=== PATIENT | female | born 1995 | race Caucasian/White ===

== ENCOUNTER 2018-03-06 02:35 | Emergency (ER) | payer OTHER ==
[2018-03-06] MEDS: SOD CHLORIDE 0.9% 1,000 ML IV (03:13)
[2018-03-06] MEDS: HYDROCODONE/APAP (5/325) TAB PO (06:11)
[2018-03-06] MEDS: POLYETHYLENE GLYCOL 17 GM PACKET PO (07:00)
[2018-03-06] MEDS: BISACODYL 30 ML ENEMA PR (07:00)
[2018-03-06] MEDS: ONDANSETRON 4 MG INJ IV (07:42)
[2018-03-06] MEDS: HYDROmorphONE 1 MG/ML SYG IV (08:04)
== END 2018-03-06 11:07 | disposition home or self-care (01) ==
LOC: E/R 11:07
DX: K59.00 Constipation, unspecified (principal); E11.9 Type 2 diabetes mellitus without complications; Z79.4 Long term (current) use of insulin; Z85.841 Personal history of malignant neoplasm of brain
CPT/HCPCS: 74176; 81003; 81025; 84703; 96374; 96375; 99285-25

== ENCOUNTER 2018-07-13 11:05 | Emergency (ER) | payer OTHER ==
[2018-07-13] MEDS: HYDROCODONE/APAP (10/325) TAB PO (11:23)
== END 2018-07-13 12:00 | disposition home or self-care (01) ==
LOC: E/R 11:05
DX: G89.4 Chronic pain syndrome (principal); E10.9 Type 1 diabetes mellitus without complications; I10 Essential (primary) hypertension; Z79.4 Long term (current) use of insulin; Z85.841 Personal history of malignant neoplasm of brain
CPT/HCPCS: 99283; Z7502

== ENCOUNTER 2019-03-05 12:41 | Emergency (ER) | payer MEDICARE, OTHER ==
[2019-03-05] MEDS: HALOPERIDOL 5 MG INJ IM (13:10)
[2019-03-05] MEDS: LORAZEPAM 2 MG INJ IM (13:10)
[2019-03-05 14:21] LABS: ADD MAN DIFF? NO
[2019-03-05 14:22] LABS: BASOPHILS % 0.2 % (0.0-2.0); EOSINOPHILS # 0.1 10^3/ul (0.0-0.5); EOSINOPHILS % 0.3 % (0.0-7.0); HEMATOCRIT 38.9 % (37.0-47.0); HEMOGLOBIN 12.5 g/dl (12.0-16.0); LYMPHOCYTES # 2.9 10^3/ul (0.8-2.9); LYMPHOCYTES % 16.4 % (15.0-51.0); MEAN CORPUSCULAR HEMOGLOBIN 26.3 pg (29.0-33.0); MEAN CORPUSCULAR HGB CONC 32.1 g/dl (32.0-37.0); MEAN CORPUSCULAR VOLUME 81.9 fl (82.0-101.0); MEAN PLATELET VOLUME 10.4 fl (7.4-10.4); MONOCYTE # 0.8 10^3/ul (0.3-0.9); MONOCYTES % 4.4 % (0.0-11.0); NEUTROPHIL # 13.7 10^3/ul (1.6-7.5); NEUTROPHILS % 78.1 % (39.0-77.0); PLATELET COUNT 299 10^3/UL (140-415); RED BLOOD COUNT 4.75 10^6/ul (4.20-5.40); RED CELL DISTRIBUTION WIDTH 13.9 % (11.5-14.5)
[2019-03-05 14:22] LABS: WHITE BLOOD COUNT 17.6 10^3/ul (4.8-10.8)
[2019-03-05 14:39] LABS: ALANINE AMINOTRANSFERASE 21 IU/L (13-69); ALBUMIN 4.1 g/dl (3.3-4.9); ALBUMIN/GLOBULIN RATIO 1.28; ALKALINE PHOSPHATASE 87 IU/L (42-121); ANION GAP 11 (5-13); ASPARTATE AMINO TRANSFERASE 14 IU/L (15-46); BILIRUBIN,INDIRECT 0.4 mg/dl (0-1.1); BILIRUBIN,TOTAL 0.4 mg/dl (0.2-1.3); BLOOD UREA NITROGEN 7 mg/dl (7-20); CALCIUM 9.2 mg/dl (8.4-10.2); CARBON DIOXIDE 18 mmol/L (21-31); CHLORIDE 107 mmol/L (97-110); Estimated GFR > 60 mL/min (>60); GLUCOSE 183 mg/dl (70-220); POTASSIUM 3.9 mmol/L (3.5-5.1); SODIUM 136 mmol/L (135-144); TOTAL PROTEIN 7.3 g/dl (6.1-8.1)
[2019-03-05 14:42] LABS: ACETAMINOPHEN < 10.0 ug/ml (10.0-30.0); ETHANOL < 10.0 mg/dl (0-0); SALICYLATE < 1.0 mg/dl (5.0-30.0)
[2019-03-05 15:59] LABS: AMPHETAMINE/METHAMPHETAMINE Negative (NEGATIVE); BARBITURATES Negative (NEGATIVE); BENZODIAZEPINES Negative (NEGATIVE); CANNABINOIDS Negative (NEGATIVE); COCAINE Negative (NEGATIVE); OPIATES Negative (NEGATIVE)
[2019-03-05] MEDS: SOD CHLORIDE 0.9% 1,000 ML IV (16:51)
[2019-03-05] MEDS ORDERED: SOD CHLORIDE 0.9% 1,000 ML IV (16:51)
[2019-03-05 20:50] LABS: ADD MAN DIFF? NO
[2019-03-05 20:52] LABS: BASOPHIL # 0.1 10^3/ul (0.0-0.1); BASOPHILS % 0.3 % (0.0-2.0); EOSINOPHILS # 0.1 10^3/ul (0.0-0.5); EOSINOPHILS % 0.5 % (0.0-7.0); HEMATOCRIT 38.4 % (37.0-47.0); HEMOGLOBIN 12.1 g/dl (12.0-16.0); LYMPHOCYTES # 4.6 10^3/ul (0.8-2.9); LYMPHOCYTES % 24.7 % (15.0-51.0); MEAN CORPUSCULAR HEMOGLOBIN 26.2 pg (29.0-33.0); MEAN CORPUSCULAR HGB CONC 31.5 g/dl (32.0-37.0); MEAN CORPUSCULAR VOLUME 83.3 fl (82.0-101.0); MONOCYTE # 0.9 10^3/ul (0.3-0.9); MONOCYTES % 4.8 % (0.0-11.0); NEUTROPHILS % 69.3 % (39.0-77.0); PLATELET COUNT 310 10^3/UL (140-415); RED BLOOD COUNT 4.61 10^6/ul (4.20-5.40)
[2019-03-05 20:52] LABS: WHITE BLOOD COUNT 18.7 10^3/ul (4.8-10.8)
[2019-03-05 22:25] LABS: URINE PH (Dip) POC 6.5 (5.0-8.5)
[2019-03-05 22:25] LABS: URINE BLOOD (Dip) POC Trace-lysed (NEGATIVE); URINE GLUCOSE (Dip) POC Negative (NEGATIVE); URINE KETONES (Dip) POC Negative (NEGATIVE); URINE LEUKOCYTE EST (Dip) POC 2+ (NEGATIVE); URINE NITRITE (Dip) POC Negative (NEGATIVE); URINE TOTAL PROTEIN POC Negative (NEGATIVE)
[2019-03-06] MEDS: ONDANSETRON (ODT) 4 MG TAB ODT ×2 (00:52→07:49)
[2019-03-06] MEDS: HYDROCODONE/APAP (5/325) TAB PO (00:52)
[2019-03-06] MEDS: TRIMETHOPRIM/SULFAMETHOX (DS) TAB PO ×2 (00:52→07:36)
[2019-03-06] MEDS: INSULIN GLARGINE [LANTus] (100 UNITS/ML) SYG SC (07:23)
[2019-03-06 08:14] LABS: ADD UMIC YES; UR ASCORBIC ACID NEGATIVE (NEGATIVE); UR BACTERIA FEW /HPF (NONE SEEN); UR BILIRUBIN (Dip) NEGATIVE (NEGATIVE); UR BLOOD (Dip) NEGATIVE (NEGATIVE); UR CLARITY CLOUDY (CLEAR); UR COLOR YELLOW (YELLOW); UR GLUCOSE (Dip) NEGATIVE (NEGATIVE); UR KETONES (Dip) NEGATIVE (NEGATIVE); UR LEUKOCYTE ESTERASE (Dip) 3+ Leu/ul (NEGATIVE); UR MUCUS FEW /HPF (NONE SEEN); UR NITRITE (Dip) NEGATIVE (NEGATIVE); UR RBC 63 /HPF (0-5); UR SPECIFIC GRAVITY (Dip) 1.018 (1.003-1.030); UR SQUAMOUS EPITHELIAL CELL MODERATE /HPF (FEW); UR TOTAL PROTEIN (Dip) NEGATIVE (NEGATIVE); UR UROBILINOGEN (Dip) NEGATIVE (NEGATIVE); UR WBC 132 /HPF (0-5)
[2019-03-06] MEDS: LORAZEPAM 0.5 MG TAB PO (08:22)
[2019-03-06 10:09] LABS: ADD MAN DIFF? NO
[2019-03-06 10:21] LABS: WHITE BLOOD COUNT 15.3 10^3/ul (4.8-10.8)
[2019-03-06 10:21] LABS: BASOPHILS % 0.3 % (0.0-2.0); EOSINOPHILS % 0.3 % (0.0-7.0); HEMATOCRIT 41.9 % (37.0-47.0); LYMPHOCYTES % 13.2 % (15.0-51.0); MEAN CORPUSCULAR VOLUME 83.8 fl (82.0-101.0); MEAN PLATELET VOLUME 10.7 fl (7.4-10.4); MONOCYTE # 0.5 10^3/ul (0.3-0.9); MONOCYTES % 3.3 % (0.0-11.0); NEUTROPHIL # 12.6 10^3/ul (1.6-7.5); NEUTROPHILS % 82.4 % (39.0-77.0); PLATELET COUNT 341 10^3/UL (140-415); RED CELL DISTRIBUTION WIDTH 14.1 % (11.5-14.5)
[2019-03-06] MEDS ORDERED: IBUPROFEN 800 MG TAB PO (16:00)
== END 2019-03-06 17:05 | disposition home or self-care (01) ==
LOC: E/R 03-06 17:05
DX: R45.851 Suicidal ideations (principal); E10.9 Type 1 diabetes mellitus without complications; Z79.4 Long term (current) use of insulin; Z85.841 Personal history of malignant neoplasm of brain
CPT/HCPCS: 70450; 71045; 80053; 80307; 81001; 81003; 82962; 84703; 85025; 96372; 99285-25